=== PATIENT | female | born 1945 | race Caucasian/White ===

== ENCOUNTER 2020-06-13 13:28 | Inpatient (IN) ==
[2020-06-13 14:21] LABS: ABS Lymphocytes 0.7 10^3/ul (1.0-4.8); ABS Monocytes 0.5 10^3/ul (0-0.8); ABS Neutrophils 5.1 10^3/ul (1.5-7.7); Hematocrit 20 % (35-47); Hemoglobin 6.5 g/dL (12.0-16.0); Lymphocyte % 11.2 %; Mean Corpuscular HGB Conc 33 g/dL (31-36); Mean Corpuscular Hemoglobin 29 pg (27-31); Mean Corpuscular Volume 88 fL (80-97); Mean Platelet Volume 6.8 fL (7.4-10.4); Platelet Count 614 10^3/uL (150-450); Red Blood Count 2.27 10^6 /uL (3.70-4.87); Red Cell Distribution Width 20 % (10-15); White Blood Count 6.4 10^3/uL (3.5-10.8)
[2020-06-13 14:50] LABS: ALT 11 U/L (7-52); AST 30 U/L (13-39); Albumin 2.6 g/dL (3.2-5.2); Albumin/Globulin Ratio 0.8 (1-3); Alcohol, S < 10 mg/dL (<10); Alkaline Phosphatase 100 U/L (34-104); Anion Gap 10 mmol/L (2-11); BUN/Creatinine Ratio 13.8 (8-20); Blood Urea Nitrogen 13 mg/dL (6-24); C Reactive Protein 203.53 mg/L (<8.01); CO2 Carbon Dioxide 29 mmol/L (22-32); Calcium 7.8 mg/dL (8.6-10.3); Chloride 100 mmol/L (101-111); EGFR African American 70.8 (>60); EGFR Non-African American 58.5 (>60); Globulin 3.4 g/dL (2-4); Glucose 98 mg/dL (70-100); Magnesium 1.6 mg/dL (1.9-2.7); Potassium 2.9 mmol/L (3.5-5.0); Sodium 139 mmol/L (135-145)
[2020-06-13 14:52] LABS: Activated Partial Thrombo Time 31.8 seconds (26.0-38.0); INR 1.32 (0.82-1.09)
[2020-06-13 14:55] LABS: Troponin I 1.82 ng/mL (<0.03)
[2020-06-13] MEDS ORDERED: Magnesium Sulfate IV 1GM/100ML 1 GM/100 ML BAG IV ONE (14:56)
[2020-06-13 15:01] LABS: TSH Ultra Thyroid Stim Horm 2.49 mcIU/mL (0.34-5.60)
[2020-06-13 16:13] LABS: Urine Appearance Cloudy; Urine Bilirubin Negative (Negative); Urine Blood Negative (Negative); Urine Color Yellow; Urine Glucose Negative (Negative); Urine Ketones Negative (Negative); Urine Nitrite Negative (Negative); Urine Protein Negative (Negative); Urine Urobilinogen Negative (Negative)
[2020-06-13 16:25] LABS: Urine Benzodiazepine Screen None Detected (None Detect); Urine Cannabinoids Screen Presumptive Positive (None Detect); Urine Opiates Screen None Detected (None Detect)
[2020-06-13] MEDS: KCL 10 MEQ/50 ML IVPREMIX 10 MEQ/50 ML BAG IV SCH ×3 (16:26→21:09)
[2020-06-13] MEDS ORDERED: Furosemide 40 mg/4 ml IV VIAL IV ONE (16:53)
[2020-06-13] MEDS ORDERED: Potassium Chlor 10 meq TAB PO ONE (16:55)
[2020-06-13] MEDS ORDERED: Magnesium Sulfate IV 3 GM in NS 0.9% 100 ml BAG 100 ML IVPB ONE (16:58)
[2020-06-13] MEDS ORDERED: Ipratropium HFA INHALER(NF) (ALTERNATIVE = NEBS) INH SCH (17:00)
[2020-06-13 17:49] LABS: LDH 396 U/L (140-271)
[2020-06-13] MEDS ORDERED: Albuterol HFA INHALER 8 gm MDI INH PRN (18:40)
[2020-06-13 19:42] LABS: Hematocrit 26 % (35-47); Hemoglobin 8.7 g/dL (12.0-16.0)
[2020-06-13 19:53] LABS: % Iron Saturation 42 % (15-55); Iron 69 ug/dL (50-212); Total Iron Binding Capacity 164 mcg/dL (250-450); Transferrin 117 mg/dL (203-362); Unsaturated Iron Binding < 149 ug/dL
[2020-06-13 19:56] LABS: Troponin I 1.52 ng/mL (<0.03)
[2020-06-13 20:55] LABS: Ferritin > 1500.0 ng/mL (11-307)
[2020-06-13] MEDS ORDERED: KCL 10 MEQ/50 ML IVPREMIX 10 MEQ/50 ML BAG ONE (21:02)
[2020-06-13 22:17] LABS: Hematocrit 24 % (35-47); Hemoglobin 7.9 g/dL (12.0-16.0)
[2020-06-13 22:34] LABS: Anion Gap 10 mmol/L (2-11); BUN/Creatinine Ratio 13.7 (8-20); Blood Urea Nitrogen 14 mg/dL (6-24); CO2 Carbon Dioxide 25 mmol/L (22-32); Calcium 7.6 mg/dL (8.6-10.3); Chloride 101 mmol/L (101-111); EGFR African American 64.5 (>60); EGFR Non-African American 53.3 (>60); Glucose 110 mg/dL (70-100); Potassium 3.2 mmol/L (3.5-5.0); Sodium 136 mmol/L (135-145)
[2020-06-13 22:39] LABS: Troponin I 1.07 ng/mL (<0.03)
[2020-06-13 23:23] LABS: Erythrocyte Sed Rate > 120 mm/Hr (0-29)
[2020-06-14] MEDS ORDERED: Potassium Chlor 20 meq TAB.ER PO ONE ×2 (00:12→08:30)
[2020-06-14 03:41] LABS: ABS Basophils 0.1 10^3/ul (0-0.2); ABS Lymphocytes 0.7 10^3/ul (1.0-4.8); ABS Monocytes 0.9 10^3/ul (0-0.8); ABS Neutrophils 7.1 10^3/ul (1.5-7.7); Eosinophil % 0.3 %; Hematocrit 26 % (35-47); Hemoglobin 8.6 g/dL (12.0-16.0); Lymphocyte % 8.4 %; Mean Corpuscular HGB Conc 34 g/dL (31-36); Mean Corpuscular Hemoglobin 30 pg (27-31); Mean Corpuscular Volume 89 fL (80-97); Mean Platelet Volume 6.7 fL (7.4-10.4); Nucleated Red Blood Cells % 0.1; Platelet Count 571 10^3/uL (150-450); Red Blood Count 2.87 10^6 /uL (3.70-4.87); Red Cell Distribution Width 18 % (10-15); White Blood Count 8.9 10^3/uL (3.5-10.8)
[2020-06-14 04:04] LABS: BUN/Creatinine Ratio 13.3 (8-20); Calcium 7.9 mg/dL (8.6-10.3); EGFR African American 67.5 (>60); EGFR Non-African American 55.8 (>60); Potassium 3.3 mmol/L (3.5-5.0)
[2020-06-14] MEDS: Tiotropium Brom/Olodaterol MDI INH SCH (07:43)
[2020-06-14] MEDS ORDERED: Furosemide 40 mg/4 ml IV VIAL IV ONE (08:28)
[2020-06-15] MEDS: Levalbuterol HFA INHALER MDI INH PRN ×3 (00:27→12:39)
[2020-06-15] MEDS: Polyethylene Glycol 3350 17 GM PACKET PO SCH (07:25)
[2020-06-15] MEDS: Tiotropium Brom/Olodaterol MDI INH SCH (08:42)
[2020-06-15] MEDS ORDERED: Potassium Chlor 20 meq TAB.ER PO ONE (08:43)
[2020-06-15 09:28] LABS: ABS Lymphocytes 0.4 10^3/ul (1.0-4.8); ABS Neutrophils 8.7 10^3/ul (1.5-7.7); Hematocrit 27 % (35-47); Hemoglobin 9.2 g/dL (12.0-16.0); Mean Corpuscular HGB Conc 34 g/dL (31-36); Mean Corpuscular Hemoglobin 30 pg (27-31); Mean Corpuscular Volume 90 fL (80-97); Mean Platelet Volume 6.9 fL (7.4-10.4); Nucleated Red Blood Cells % 0.1; Platelet Count 546 10^3/uL (150-450); Red Blood Count 3.05 10^6 /uL (3.70-4.87); Red Cell Distribution Width 18 % (10-15); White Blood Count 10.1 10^3/uL (3.5-10.8)
[2020-06-15 09:40] LABS: BUN/Creatinine Ratio 14.8 (8-20); Calcium 8.2 mg/dL (8.6-10.3); EGFR African American 116.7 (>60); EGFR Non-African American 96.4 (>60); Potassium 3.3 mmol/L (3.5-5.0)
[2020-06-15] MEDS ORDERED: Iohexol 350 (CONTRAST) 500 ML MDV IV ONE (11:28)
[2020-06-15] MEDS: Albuterol/Ipratropium NEB.SOL (2.5/0.5 MG) 3 ML NEB.SOLN INH SCH ×2 (14:07→19:59)
[2020-06-15] MEDS ORDERED: Furosemide 20 mg/2 ml IV VIAL IV SLOW PU ONE (23:57)
[2020-06-16] MEDS: Albuterol/Ipratropium NEB.SOL (2.5/0.5 MG) 3 ML NEB.SOLN INH SCH (01:21)
[2020-06-16] MEDS ORDERED: Albuterol/Ipratropium NEB.SOL (2.5/0.5 MG) 3 ML NEB.SOLN INH PRN (04:11)
[2020-06-16] MEDS: cefTRIAXone 1 gm/50 mL NS BAG 1 GM/50 ML BAG IVPB SCH (04:15)
[2020-06-16] MEDS: DOXYcycline 100 MG in NS 0.9% 250 ml 250 ML IVPB SCH ×2 (04:49→21:08)
[2020-06-16 06:35] LABS: ABS Lymphocytes 0.4 10^3/ul (1.0-4.8); ABS Monocytes 1.2 10^3/ul (0-0.8); ABS Neutrophils 8.3 10^3/ul (1.5-7.7); Hematocrit 27 % (35-47); Hemoglobin 8.9 g/dL (12.0-16.0); Lymphocyte % 4.4 %; Mean Corpuscular HGB Conc 34 g/dL (31-36); Mean Corpuscular Hemoglobin 30 pg (27-31); Mean Corpuscular Volume 90 fL (80-97); Mean Platelet Volume 6.9 fL (7.4-10.4); Platelet Count 490 10^3/uL (150-450); Red Blood Count 2.96 10^6 /uL (3.70-4.87); Red Cell Distribution Width 18 % (10-15); White Blood Count 9.9 10^3/uL (3.5-10.8)
[2020-06-16 06:51] LABS: EGFR African American 126.2 (>60); EGFR Non-African American 104.3 (>60); Magnesium 1.5 mg/dL (1.9-2.7); Potassium 3.2 mmol/L (3.5-5.0)
[2020-06-16] MEDS: Tiotropium Brom/Olodaterol MDI INH SCH (07:31)
[2020-06-16] MEDS: Levalbuterol HFA INHALER MDI INH PRN ×2 (07:32→23:05)
[2020-06-16] MEDS ORDERED: Magnesium Sulf 4 GM/100 ML IV 4,000 MG/100 ML BAG IVPB ONE (07:58)
[2020-06-16] MEDS ORDERED: Potassium Chlor 20 meq TAB.ER PO SCH (09:00)
[2020-06-16] MEDS: Potassium Chlor 20 meq TAB.ER PO SCH (09:02)
[2020-06-16] MEDS: Polyethylene Glycol 3350 17 GM PACKET PO SCH (09:03)
[2020-06-16] MEDS ORDERED: Furosemide 40 mg/4 ml IV VIAL IV ONE (17:39)
[2020-06-16] MEDS: Enoxaparin 40 MG/0.4 ML SYR SUBCUT SCH (21:09)
[2020-06-17] MEDS: Levalbuterol HFA INHALER MDI INH PRN (03:41)
[2020-06-17 06:15] LABS: ABS Lymphocytes 0.6 10^3/ul (1.0-4.8); ABS Monocytes 1.2 10^3/ul (0-0.8); ABS Neutrophils 8.1 10^3/ul (1.5-7.7); Eosinophil % 0.1 %; Hematocrit 27 % (35-47); Lymphocyte % 5.7 %; Mean Corpuscular HGB Conc 33 g/dL (31-36); Mean Corpuscular Hemoglobin 30 pg (27-31); Mean Corpuscular Volume 91 fL (80-97); Mean Platelet Volume 6.9 fL (7.4-10.4); Platelet Count 464 10^3/uL (150-450); Red Blood Count 2.96 10^6 /uL (3.70-4.87); Red Cell Distribution Width 19 % (10-15); White Blood Count 9.9 10^3/uL (3.5-10.8)
[2020-06-17 06:35] LABS: BUN/Creatinine Ratio 14.5 (8-20); EGFR African American 114.5 (>60); EGFR Non-African American 94.6 (>60); Magnesium 1.9 mg/dL (1.9-2.7); Potassium 3.4 mmol/L (3.5-5.0)
[2020-06-17] MEDS: Tiotropium Brom/Olodaterol MDI INH SCH (07:59)
[2020-06-17] MEDS: Potassium Chlor 20 meq TAB.ER PO SCH (09:30)
[2020-06-17] MEDS: cefTRIAXone 1 gm/50 mL NS BAG 1 GM/50 ML BAG IVPB SCH (09:31)
[2020-06-17] MEDS: Polyethylene Glycol 3350 17 GM PACKET PO SCH (09:32)
[2020-06-17] MEDS: DOXYcycline 100 MG in NS 0.9% 250 ml 250 ML IVPB SCH ×2 (10:41→19:52)
[2020-06-17] MEDS: Furosemide 40 mg/4 ml IV VIAL IV SLOW PU SCH (14:28)
[2020-06-17] MEDS: Enoxaparin 40 MG/0.4 ML SYR SUBCUT SCH (19:45)
[2020-06-18 05:35] LABS: BUN/Creatinine Ratio 18.6 (8-20); Calcium 8.2 mg/dL (8.6-10.3); EGFR African American 121.2 (>60); EGFR Non-African American 100.2 (>60); Potassium 3.3 mmol/L (3.5-5.0)
[2020-06-18] MEDS: Tiotropium Brom/Olodaterol MDI INH SCH (08:14)
[2020-06-18] MEDS: Furosemide 40 mg/4 ml IV VIAL IV SLOW PU SCH ×2 (08:59→17:58)
[2020-06-18] MEDS: cefTRIAXone 1 gm/50 mL NS BAG 1 GM/50 ML BAG IVPB SCH (08:59)
[2020-06-18] MEDS: Potassium Chlor 20 meq TAB.ER PO SCH (08:59)
[2020-06-18] MEDS: Polyethylene Glycol 3350 17 GM PACKET PO SCH (08:59)
[2020-06-18] MEDS: DOXYcycline 100 MG in NS 0.9% 250 ml 250 ML IVPB SCH ×2 (10:11→20:19)
[2020-06-18] MEDS: Enoxaparin 40 MG/0.4 ML SYR SUBCUT SCH (20:22)
[2020-06-19 05:10] LABS: ABS Lymphocytes 0.7 10^3/ul (1.0-4.8); ABS Monocytes 1.2 10^3/ul (0-0.8); ABS Neutrophils 7.6 10^3/ul (1.5-7.7); Eosinophil % 0.2 %; Hematocrit 27 % (35-47); Hemoglobin 9.1 g/dL (12.0-16.0); Lymphocyte % 7.1 %; Mean Corpuscular HGB Conc 34 g/dL (31-36); Mean Corpuscular Hemoglobin 30 pg (27-31); Mean Corpuscular Volume 89 fL (80-97); Mean Platelet Volume 7.1 fL (7.4-10.4); Platelet Count 480 10^3/uL (150-450); Red Blood Count 3.03 10^6 /uL (3.70-4.87); Red Cell Distribution Width 19 % (10-15); White Blood Count 9.6 10^3/uL (3.5-10.8)
[2020-06-19 05:30] LABS: Albumin 2.4 g/dL (3.2-5.2); Albumin/Globulin Ratio 0.7 (1-3); BUN/Creatinine Ratio 18.7 (8-20); EGFR African American 91.9 (>60); Globulin 3.5 g/dL (2-4); Potassium 3.2 mmol/L (3.5-5.0); Total Bilirubin 0.4 mg/dL (0.2-1.0); Total Protein 5.9 g/dL (6.4-8.9)
[2020-06-19] MEDS: Polyethylene Glycol 3350 17 GM PACKET PO SCH (07:07)
[2020-06-19] MEDS: Potassium Chlor 20 meq TAB.ER PO SCH (07:07)
[2020-06-19] MEDS: Tiotropium Brom/Olodaterol MDI INH SCH (07:15)
[2020-06-19] MEDS: cefTRIAXone 1 gm/50 mL NS BAG 1 GM/50 ML BAG IVPB SCH (08:00)
[2020-06-19] MEDS: Furosemide 40 mg/4 ml IV VIAL IV SLOW PU SCH (08:00)
[2020-06-19] MEDS ORDERED: Potassium Chlor 20 meq TAB.ER PO ONE (08:34)
[2020-06-19] MEDS: DOXYcycline 100 MG in NS 0.9% 250 ml 250 ML IVPB SCH ×2 (08:39→19:48)
[2020-06-19 09:04] LABS: Magnesium 1.4 mg/dL (1.9-2.7)
[2020-06-19] MEDS ORDERED: Magnesium Sulf 4 GM/100 ML IV 4,000 MG/100 ML BAG IVPB ONE (11:44)
[2020-06-19 16:55] LABS: Body Fluid Source Pleural Fluid
[2020-06-19 17:38] LABS: Body Fluid Mono 20 %; Body Fluid Other Cells 3
[2020-06-19] MEDS: Enoxaparin 40 MG/0.4 ML SYR SUBCUT SCH (19:48)
[2020-06-20 06:10] LABS: Calcium 7.9 mg/dL (8.6-10.3); EGFR African American 118.9 (>60); EGFR Non-African American 98.3 (>60); Magnesium 1.9 mg/dL (1.9-2.7)
[2020-06-20] MEDS: Polyethylene Glycol 3350 17 GM PACKET PO SCH (07:26)
[2020-06-20] MEDS: Tiotropium Brom/Olodaterol MDI INH SCH (07:31)
[2020-06-20] MEDS ORDERED: Potassium Chlor 20 meq TAB.ER PO ONE (08:10)
[2020-06-20] MEDS: DOXYcycline 100 MG in NS 0.9% 250 ml 250 ML IVPB SCH (12:00)
[2020-06-20] MEDS: cefTRIAXone 1 gm/50 mL NS BAG 1 GM/50 ML BAG IVPB SCH (12:00)
[2020-06-20] MEDS ORDERED: fentaNYL 100 mcg/2 ml 50 MCG/ML VIAL ONE ×2 (15:15→15:16)
[2020-06-20] MEDS: Enoxaparin 40 MG/0.4 ML SYR SUBCUT SCH (21:24)
[2020-06-21 05:21] LABS: ABS Basophils 0.1 10^3/ul (0-0.2); ABS Lymphocytes 0.5 10^3/ul (1.0-4.8); ABS Monocytes 1.2 10^3/ul (0-0.8); ABS Neutrophils 7.7 10^3/ul (1.5-7.7); Eosinophil % 0.3 %; Hematocrit 26 % (35-47); Hemoglobin 8.6 g/dL (12.0-16.0); Mean Corpuscular HGB Conc 33 g/dL (31-36); Mean Corpuscular Hemoglobin 30 pg (27-31); Mean Corpuscular Volume 90 fL (80-97); Platelet Count 423 10^3/uL (150-450); Red Cell Distribution Width 18 % (10-15); White Blood Count 9.4 10^3/uL (3.5-10.8)
[2020-06-21 05:38] LABS: BUN/Creatinine Ratio 26.3 (8-20); Calcium 7.8 mg/dL (8.6-10.3); EGFR African American 126.2 (>60); EGFR Non-African American 104.3 (>60); Magnesium 1.7 mg/dL (1.9-2.7); Potassium 3.5 mmol/L (3.5-5.0)
[2020-06-21] MEDS ORDERED: Magnesium Sulfate 2 gm BAG 2 GM/50 ML BAG IVPB ONE (08:12)
[2020-06-21] MEDS: Tiotropium Brom/Olodaterol MDI INH SCH (08:18)
[2020-06-21] MEDS: Polyethylene Glycol 3350 17 GM PACKET PO SCH (08:55)
[2020-06-21 13:09] VITALS: BP 107/65
[2020-06-22 10:25] LABS: Lactate Dehydrogenase, BF 228 U/L
[2020-06-22 13:41] LABS: Fluid Type, Glucose PLEURAL; Glucose, BF 102 mg/dL
[2020-06-22 13:44] LABS: Fluid Type, Protein, Total PLEURAL
== END 2020-06-21 16:50 | disposition home or self-care (01) | DRG 187 ==
LOC: ED 13:28 → MED 18:27
PROVIDERS: ADMIT Internal Medicine; ATTEND Pediatrics